=== PATIENT | female | born 1965 | race Caucasian/White ===

== ENCOUNTER 2019-11-25 09:26 | Emergency (ER) | payer BC, OTHER | END 2019-11-25 11:58 | disposition home or self-care (01) | LOC: EDH 09:26 | DX: S80.12XA Contusion of left lower leg, initial encounter (principal); Z91.041 Radiographic dye allergy status; Z98.890 Other specified postprocedural states; W18.39XA Other fall on same level, initial encounter; Y93.89 Activity, other specified; Y92.89 Other specified places as the place of occurrence of the external cause; Y99.8 Other external cause status | CPT/HCPCS: 73590; 93971 ==